=== PATIENT | female | born 1985 | race African-American/Black ===

== ENCOUNTER 2021-08-17 12:32 | Emergency (ER) | payer OTHER ==
[~2021-08-17] VITALS: Ht 165.1 cm; Wt 113.4 kg
== END 2021-08-17 17:57 | disposition home or self-care (01) ==
LOC: ED 12:32
DX: U07.1 COVID-19 (principal); Z23 Encounter for immunization; J45.909 Unspecified asthma, uncomplicated; Z88.0 Allergy status to penicillin; Z88.1 Allergy status to other antibiotic agents
CPT/HCPCS: 99284-25; C9803; M0243; Q0244; U0003

== ENCOUNTER 2021-12-14 05:45 | Day surgery (SDC) | payer OTHER ==
[~2021-12-14] VITALS: Ht 165.1 cm; Wt 123.2 kg
--- NOTE | ~2021-12-14 | OR ---
[facility] [address] [place] [id number] Draft DATE OF OPERATION: 12/14/2021 SURGEON: Kiran Harley DO PREOPERATIVE DIAGNOSES: 1. Abnormal uterine bleeding. 2. Cervical cancer screening needed. 3. PCOS. 4. Obesity. 5. Anxiety. POSTOPERATIVE DIAGNOSES: 1. Abnormal uterine bleeding. 2. Cervical cancer screening needed. 3. PCOS. 4. Obesity. 5. Anxiety. PROCEDURES PERFORMED: 1. Exam under anesthesia. 2. Cervical cancer screening. 3. Hysteroscopy and dilation and curettage. ANESTHESIA: MAC. ESTIMATED BLOOD LOSS: 10 mL. FLUID DEFICIT: 410 mL. SPECIMENS: 1. Cervical cytology for Pap smear and HPV. 2. Endometrial polyps and curettings. FINDINGS: Normal external genitalia with multiple piercings. Normal vagina and cervix with some moderate apical descensus. On hysteroscopy, normal endocervical canal and bilateral tubal ostia identified. Markedly thick endometrium with multiple endometrial polyps. PATIENT NAME: PHYLLIS ALTAMIRANO OPERATIVE REPORT DATE OF : 83 REPORT #: [id number] PHYSICIAN: KIRAN HARLEY DO PCP: NO PRIMARY CARE PHYSICIAN REPORT IS CONFIDENTIAL AND NOT TO BE RELEASED WITHOUT AUTHORIZATION [facility] [address] [place] [id number] Draft Hemostasis at the end of the procedure and normal anatomy restored. COMPLICATIONS: None. INDICATIONS: Mrs. Altamirano is a pleasant 36-year-old -[place] Citizen female with a history of abnormal uterine bleeding. She is due for cervical cancer screening. The patient reports severe anxiety and declines pelvic exam in the office. Ultrasound demonstrated somewhat thickened endometrium with no obvious fibroids. The patient was consented for hysteroscopy, D and C exam under anesthesia, and cervical cancer screening with Pap smear. Risks, benefits, and alternatives were discussed in detail with the patient. The patient understands and wished to proceed with the procedure in the operating room. DESCRIPTION OF PROCEDURE: The patient was taken to the operating room, where a time-out was performed to confirm correct patient, correct procedure. MAC anesthesia was adequately established. The patient was prepped and draped in dorsal lithotomy position with her feet in Yellofin stirrups. ICPs were on and running. No preoperative antibiotics or heparin were indicated. The bladder was drained. A Pap smear was performed using a Cytobrush and specimen was sent for cytology and HPV testing per ASCCP guidelines. The cervix was grasped with Allis clamp and the cervix was gently dilated using Hegar dilators. An operative hysteroscope was then placed in the cervical os and advanced under direct visualization into the uterine cavity. Normal cervical canal and bilateral tubal ostia were identified. The endometrium was noted to be markedly thickened with multiple endometrial polyps. MyoSure Lite device was selected and advanced into the uterine cavity, where circumferential curettage and polypectomy was performed. Restoring normal anatomy to the uterine cavity. The hysteroscope was withdrawn and uterus was noted to be hemostatic. The patient was then taken to the PACU in good and stable condition. Fluid deficit 410 mL. Sponge, needle, and instrument count was correct x2 at the end of the procedure. DO THADDEUS Riley/MAGALY /[id number] PATIENT NAME: PHYLLIS ALTAMIRANO OPERATIVE REPORT DATE OF : [birth year] REPORT #: [id number] PHYSICIAN: KIRAN HARLEY DO PCP: NO PRIMARY CARE PHYSICIAN REPORT IS CONFIDENTIAL AND NOT TO BE RELEASED WITHOUT AUTHORIZATION [address] [place] [address] Draft Copies: ~ PATIENT NAME: PHYLLIS ALTAMIRANO OPERATIVE REPORT DATE OF : [birth year] REPORT #: [id number] PHYSICIAN: KIRAN HARLEY DO PCP: NO PRIMARY CARE PHYSICIAN REPORT IS CONFIDENTIAL AND NOT TO BE RELEASED WITHOUT AUTHORIZATION
[~2021-12-14 05:45] MED LIST: FLOVENT HFA12 G1 INH; IRON325 M1 PO; VENTOLIN HFA18 GM
--- NOTE | 2021-12-14 08:02 | NUR ---
12/14/21 0802 Tahira Burroughs 0754-PT TO PACU IN POSTION. EYES CLOSED. RESPONDS TO VERBAL STIMULI AND FALLS QUICKLY BACK TO SLEEP. BREATHING EASY AND UNLABORED. SP02 >95% ON 6 L O2 VIA SIMPLE MASK. 0802- PT PULLING MASK OFF STATING SHE DOESN'T WANT TO WEAR IT. SPO2 >95%. O2 DC'D. BREATHING EASY AND UNLABORED. PT DENIES PAIN AND FALLS BACK TO SLEEP.
--- NOTE | 2021-12-14 08:29 | NUR ---
PT ALERT, ORIENTED AND VERY ANXIOUS. HAD PT DO CLEANSING BREATH, DEBRIEFED AND HAD PRAYER WITH HER AT HER REQUEST. OR STAFF READY FOR PT, GAVE BLESSING, WILL FOLLOW NEEDED
== END 2021-12-14 08:04 | disposition home or self-care (01) ==
LOC: DS 05:45 → OPS 05:45 → DS 07:30 → OPS 08:04
PROVIDERS: ATTEND Obstetrics & Gynecology
PROC: 0UDB8ZX Extraction of Endometrium, Via Natural or Artificial Opening Endoscopic, Diagnostic (ICD-10-PCS; principal; 2021-12-14 07:30)
DX: N84.0 Polyp of corpus uteri (principal); E28.2 Polycystic ovarian syndrome; Z01.411 Encounter for gynecological examination (general) (routine) with abnormal findings; F50.89 Other specified eating disorder; E66.9 Obesity, unspecified; Z68.42 Body mass index [BMI] 45.0-49.9, adult; F41.9 Anxiety disorder, unspecified; J45.909 Unspecified asthma, uncomplicated; D50.0 Iron deficiency anemia secondary to blood loss (chronic); Z88.1 Allergy status to other antibiotic agents; Z88.0 Allergy status to penicillin; Z87.59 Personal history of other complications of pregnancy, childbirth and the puerperium
CPT/HCPCS: 36415; 86850; 86900; 86901; J1100; J1885; J2001; J2250; J2405; J2704; J3010; J7121

== ENCOUNTER 2023-06-06 08:20 | Day surgery (SDC) | payer OTHER ==
[2023-06-04 13:19] VITALS: BP 121/79
[~2023-06-06] VITALS: Ht 165.1 cm; Wt 97.5 kg
[~2023-06-06 08:20] MED LIST changes: +OMEPRAZOLE20 M2 PO; +WELLBUTRIN SR150 MG PO
[2023-06-06 08:47] VITALS: BP 134/72
[2023-06-06 08:55] LABS: HEMATOCRIT 25.7 % (35.0-50.0); HEMOGLOBIN 7.1 g/dL (12.0-18.0); MCH 16.1 (27-36); MCHC 27.7 g/dl (30-36); MCV 58.2 fl (81-99); PLATELET COUNT 403 K/uL (140-440); RBC 4.42 M/ul (4.3-5.7); RDW 18.3 (10.5-15.0)
[2023-06-06 09:09] LABS: ALBUMIN 3.6 g/dL (3.4-5.0); ALBUMIN/GLOBULIN RATIO 0.86 (1.1-2.4); ANION GAP 13.4 (7-21); BILIRUBIN, TOTAL 0.4 ng/dL (0.2-1.0); BUN/CREATININE RATIO 7.93 (6.0-28.6); CALCIUM 9.1 mg/dL (8.5-10.1); CREATININE, SERUM 0.63 mg/dL (0.55-1.02); POTASSIUM 3.4 mmol/L (3.5-5.1); PROTEIN, TOTAL 7.8 g/dL (6.4-8.2)
[2023-06-06 09:18] LABS: BASOPHILS, MANUAL DIFF 1; EOSINOPHILS, MANUAL DIFF 2; LYMPHOCYTES, MANUAL DIFF 60; MONOCYTES, MANUAL DIFF 2; NEUTROPHILS, MANUAL DIFF 35
--- NOTE | 2023-06-06 10:11 | NUR ---
06/06/23 1011 Marya Cid 1001-PATIENT ARRIVED TO PACU ON 2L NC RR EVEN. PATIENT AWAKE DROWSY ABDOMEN SOFT. IVF INFUSING. SR. PATIENT HOLDING FINGERS IN AIR. 1010-PATIENT AWAKE REPORTS "THROAT SORE" EDUCATED ABOUT PROCEDURE. PLACED ON RA RR EVEN 100%
[2023-06-06 10:32] VITALS: BP 138/88
--- NOTE | 2023-06-10 08:29 | OR ---
[facility] [address] [place], [place] [address] Signed DATE OF OPERATION: 06/06/2023 SURGEON: Robin Hagen MD PREOPERATIVE DIAGNOSIS: Severe proximal cervical stricture with dysphagia and weight loss. POSTOPERATIVE DIAGNOSIS: Severe proximal cervical stricture with dysphagia and weight loss. PROCEDURES: 1. Esophagogastroduodenoscopy with biopsy. 2. Esophageal dilation ([employer] balloon dilator 3 ATMs corresponding to 18 mm). ANESTHESIA: Intravenous sedation; propofol infusion, Lionel Marie, POLISHER HAND INDICATIONS: This is a 37-year-old black woman, who has had long-standing cervical dysphagia. She was evaluated by ASPEN Leger as member of the [facility]. The patient underwent an upper GI on April 01, 2023 confirming a severe proximal cervical stricture. The patient has been on Prilosec for quite some time. She denies any typical reflux symptoms, however. She has had no cervical surgical intervention or other throat or neck trauma. She underwent upper endoscopy in 2019 in [place], which had no mention of a cervical stricture problem. The patient has had significant weight loss going from 270 to 213 pounds related to difficulty in swallowing. She is admitted at this time to undergo upper endoscopy and probable dilation. She understands the risk of bleeding, infection, and perforation. FINDINGS: The stricture was profound. It was surprising that even saliva was able to pass through this area reliably. A small upper endoscope was required (Olympus GIF-H190) to pass the stricture, which did provide some dilation itself. The esophagus, stomach and duodenum were well evaluated. The flap valve appeared reasonably good and there was no evidence of distal or middle esophagitis nor sign of eosinophilic esophagitis, biopsies were obtained. Dilation of the strictured area, which was at 22 cm and just below the vocal cord entry area was accomplished with [employer] balloon dilated to 3 ATMs corresponding to 18 mm dilation. Electronically Signed By: ROBIN HAGEN MD 06/10/23 0829 PATIENT NAME: PHYLLIS ANGELO OPERATIVE REPORT DATE OF : 83 REPORT #: [id number] PHYSICIAN: ROBIN HAGEN MD PCP: CAIO BRYAN PAC REPORT IS CONFIDENTIAL AND NOT TO BE RELEASED WITHOUT AUTHORIZATION [facility] [address] [place], [place] [address] Signed DESCRIPTION OF PROCEDURE: The patient was brought to the surgical endoscopy suite and placed in the lateral decubitus position, given intravenous sedation with propofol and fentanyl infusion monitored by the financial writer. A bite block was placed. An Olympus video upper endoscope was passed in the hypopharynx. The vocal cords appeared normal. The scope was advanced into the esophagus where immediately noted was a very narrow strictured area. It did not appear inflamed nor neoplastic in any way. Various manipulations would not allow the conventional upper endoscope to pass and on that basis, a smaller diameter scope (Olympus GIF-H190) was obtained and reintroduction undertaken. With various manipulations, the stricture could be passed. The scope was passed beyond the stricture to the esophagus, which was surprisingly normal middle and distal portions with no sign of felinization, inflammation and definitely no Lockhart's epithelium. The scope was passed to the stomach which was insufflated with air. Rugal folds were normal as was the antrum. The pylorus was normal. Scope was passed through into the duodenal which was normal. The scope was withdrawn and biopsies were taken subsequently of the distal esophagus and the midesophagus to assess for occult eosinophilic esophagitis. The scope was then carefully withdrawn through the area of stricture, which showed disruption of the mucosa from passage of the scope itself. Mindful that the underlying etiology of her stricture is uncertain and less likely related to reflux considering the distal findings, and therefore balloon dilation was deemed advisable. [email or web address] balloon dilator was passed down the operating channel of the scope and positioned across the area of concern at 22 cm. Dilation was undertaken with the balloon per armed security guard's instructions 1st initially to 1 atmosphere, subsequently 2 and ultimately 3. The balloon was deflated in the unit and then the dilator was removed together. The balloon catheter removed. Reintroduction of the scope allowed for suction of pooled secretions in the hypopharynx and passage of the scope to the area dilated. Good mucosal disruption was noted, no sign of complication, however. The scope was then removed and the patient was taken to the recovery room in good condition. CONCLUDING DIAGNOSIS: Profound proximal cervical stricture, now dilated. PLAN: We will initiate Carafate slurry q.i.d. and maintain only soft food and liquids for 48 hours. She should have no meat or bread for now. I will see her back in four weeks and we will review her progress. She may require serial dilations as the stricture heals to ensure adequate swallowing. Electronically Signed By: ROBIN HAGEN MD 06/10/23 0829 PATIENT NAME: PHYLLIS ANGELO OPERATIVE REPORT DATE OF : 83 REPORT #: [id number] PHYSICIAN: ROBIN HAGEN MD PCP: CAIO BRYAN PAC REPORT IS CONFIDENTIAL AND NOT TO BE RELEASED WITHOUT AUTHORIZATION [address] [address] Signed MD NAHUM Jose/MODL /[id number] cc: ASPEN Leger Copies: ~ Electronically Signed By: ROBIN HAGEN MD 06/10/23 0829 PATIENT NAME: GIPHYLLIS A OPERATIVE REPORT DATE OF : 83 REPORT #: [id number] PHYSICIAN: ROBIN HAGEN MD PCP: CAIO BRYAN PAC REPORT IS CONFIDENTIAL AND NOT TO BE RELEASED WITHOUT AUTHORIZATION
--- NOTE | 2023-06-11 14:45 | PATH ---
[facility] [address] [facility], [place] [address] Signed SPECIMEN(S): A LOWER ESOPHAGEAL BIOPSY SPECIMEN(S): B MID ESOPHAGEAL BIOPSY SPECIMEN SOURCE: A. LOWER ESOPHAGEAL BIOPSY B. MID ESOPHAGEAL BIOPSY CLINICAL HISTORY: EGD. Pre: Cervical dysphagia FINAL PATHOLOGIC DIAGNOSIS: A. Lower esophageal biopsy: - Benign esophageal mucosa with reactive features and slight chronic inflammation. - Negative for increased epithelial eosinophils. - Negative for glandular mucosa. B. Mid esophageal biopsy: - Benign esophageal mucosa, negative for increased epithelial eosinophils. JVR:anisha MICROSCOPIC EXAMINATION: Histologic sections of all submitted blocks are examined by light microscopy. These findings, together with the gross examination, support the pathologic diagnosis. GROSS DESCRIPTION: A. The specimen, labeled and designated "Adarsh, lower esophageal biopsy," is received in formalin and consists of two mtz soft tissue fragments, ranging from 0.4-0.5 cm. Entirely submitted in (A1). B. The specimen, labeled and designated "Adarsh, mid esophageal biopsy," is received in formalin and consists of one mtz soft tissue fragment, 0.4 cm. Entirely submitted in (B1). VB (under the direct supervision of a pathologist) The Gross Description was prepared using a voice recognition system. The report was reviewed for accuracy; however, sound-alike word errors, addition and/or deletions may occur. If there is any question about this report, please contact Client Services. PERFORMING LABORATORY: Technical component was performed by [facility], [address] [place] [id number] (CLIA# [id number]). Professional interpretation was PATIENT NAME: PHYLLIS ANGELO PATHOLOGY DATE OF : [birth year] REPORT #: [id number] PHYSICIAN: [facility] PCP: CAIO BRYAN PAC REPORT IS CONFIDENTIAL AND NOT TO BE RELEASED WITHOUT AUTHORIZATION [address] [address] Signed performed by [facility] - [address] [place] [address] (CLIA#: [id number]). Diagnostician: Jhon Youngblood MD Pathologist Electronically Signed 06/11/2023 Copies: ~ PATIENT NAME: PHYLLIS ANGELO PATHOLOGY DATE OF : 83 REPORT #: [id number] PHYSICIAN: [facility] PCP: CAIO BRYAN PAC REPORT IS CONFIDENTIAL AND NOT TO BE RELEASED WITHOUT AUTHORIZATION
== END 2023-06-06 10:57 | disposition home or self-care (01) ==
LOC: OPS 08:20 → DS 08:20 → OPS 09:00 → DS 10:30 → OPS 10:57 → DS 11:00
PROVIDERS: ATTEND Surgery
PROC: 0DB28ZX Excision of Middle Esophagus, Via Natural or Artificial Opening Endoscopic, Diagnostic (ICD-10-PCS; 2023-06-06)
PROC: 0D758ZZ Dilation of Esophagus, Via Natural or Artificial Opening Endoscopic (ICD-10-PCS; 2023-06-06)
PROC: 0DB38ZX Excision of Lower Esophagus, Via Natural or Artificial Opening Endoscopic, Diagnostic (ICD-10-PCS; principal; 2023-06-06 09:00)
DX: K22.2 Esophageal obstruction (principal); J45.909 Unspecified asthma, uncomplicated; K21.00 Gastro-esophageal reflux disease with esophagitis, without bleeding; R63.4 Abnormal weight loss; Z68.35 Body mass index [BMI] 35.0-35.9, adult
CPT/HCPCS: 00731; 36415; 80053; 85025; C1726; J2001; J2250; J2704; J3010; J7121

== ENCOUNTER 2024-12-02 12:56 | Emergency (ER) | payer OTHER ==
[~2024-12-02] VITALS: Ht 165.1 cm; Wt 121.2 kg
[2024-12-02] MEDS ORDERED: PANTOPRAZOLE SO40 MG PO (13:25)
[2024-12-02] MEDS ORDERED: CEPHALEXIN500 M1 PO (14:40)
[2024-12-02] MEDS ORDERED: CEPHALEXIN MONOHYDRATE 500 MG CAP PO ONE (14:45)
[2024-12-02 15:08] VITALS: BP 114/90
== END 2024-12-02 15:10 | disposition home or self-care (01) ==
LOC: ED 12:56
DX: L03.211 Cellulitis of face (principal); J45.909 Unspecified asthma, uncomplicated; K21.9 Gastro-esophageal reflux disease without esophagitis
CPT/HCPCS: 99283; A9270